=== PATIENT | female | born 1980 | race African-American/Black ===

== ENCOUNTER 2018-10-11 18:47 | Emergency (ER) | payer SELFPAY ==
[~2018-10-11] VITALS: Ht 170.2 cm; Wt 100.0 kg
[2018-10-11 18:53] VITALS: BP 164/100
== END 2018-10-11 22:10 | disposition left against medical advice (07) ==
LOC: ER 18:47
DX: Z53.21 Procedure and treatment not carried out due to patient leaving prior to being seen by health care provider (principal); I10 Essential (primary) hypertension; G43.909 Migraine, unspecified, not intractable, without status migrainosus; Z90.49 Acquired absence of other specified parts of digestive tract